=== PATIENT | female | born 1940 | race Caucasian/White ===

== ENCOUNTER → 2020-03-30 | Outpatient (CLI) | payer MEDICARE ==
--- NOTE | 2020-03-30 14:32 | Diagnostic Imaging Report ---
EXAMINATION: SP LUMBAR AP LATERAL 2-3VWS INDICATION: Lumbar back pain COMPARISON: None FINDINGS: AP and lateral images of the lumbar spine were obtained. No acute fracture. Vertebral body heights are maintained. Mild S-shaped curvature of the lumbar spine with dextroconvex curvature of the upper lumbar spine and levoconvex curvature of the lower lumbar spine. Grade 1 anterolisthesis at L4-5. Severe degenerative changes of the visualized spine with disc space narrowing and bulky osteophyte formation. Diffuse osteopenia. Atherosclerotic arterial calcic dictations. Phleboliths in the pelvis. IMPRESSION: No acute osseous injury. Diffuse osteopenia and prominent multilevel degenerative changes. Grade 1 anterolisthesis at L4-5. Signed by: Alisson Elena MD on 03/30/2020 2:28 PM
== END ==
LOC: RAD 13:15
PROVIDERS: ATTEND Internal Medicine
DX: M54.5 Low back pain (principal)
CPT/HCPCS: 72100

== ENCOUNTER → 2020-09-30 | Outpatient (CLI) | payer MEDICARE | LOC: RAD 13:22 | PROVIDERS: ATTEND Internal Medicine | DX: M16.11 Unilateral primary osteoarthritis, right hip (principal); R63.4 Abnormal weight loss | CPT/HCPCS: 71046 ==

== ENCOUNTER → 2022-06-13 | Outpatient (CLI) | payer MEDICARE | LOC: RAD 15:24 | PROVIDERS: ATTEND Internal Medicine | DX: M51.36 Other intervertebral disc degeneration, lumbar region (principal) | CPT/HCPCS: 72100 ==